=== PATIENT | male | born 2000 | race Caucasian/White ===

== ENCOUNTER 2023-09-04 22:14 | Emergency (ER) | payer OTHER, SELFPAY ==
--- NOTE | ~2023-09-04 | XR_ITS ---
EXAMINATION: XR HAND, RIGHT CLINICAL INFORMATION: First finger dislocation. Post reduction. COMPARISON: None available. TECHNIQUE: PA, lateral, and oblique views of the right hand. FINDINGS: Small cortical irregularity is noted at the posterior/dorsal base of the middle phalanx at the interphalangeal joint of the right second digit, may represent subtle fracture. Otherwise, the bony alignments are intact. The soft tissues are unremarkable.. XR/XR hand RT min 3V IMPRESSION: Small cortical irregularity at the posterior/dorsal base of the middle phalanx at the interphalangeal joint of the right second digit, may represent subtle fracture, otherwise unremarkable.
[2023-09-04 22:16] VITALS: BP 124/79; PULSE 73; RESP 18; TEMP 36.8; O2SAT 98; BMI 25.8
--- NOTE | 2023-09-04 22:53 | PC.NURSE ---
Pt able to move finger but has some mild pain. Unable to fully straighten out finger. Pain upon palpation
[2023-09-05 00:22] VITALS: BP 125/62; PULSE 66; RESP 16; TEMP 37.1; O2SAT 96
--- NOTE | 2023-09-05 00:22 | ED.EXTPRO ---
HPI - Extremity Problem General Chief complaint: Extremity Injury, Upper Stated complaint: dislocated finger? 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 States finger was obviously dislocated and boxing trainer present at game reduced on scene. Patient reporting continued pain and paresthesias. Denies injury to other area, head trauma, numbness/weakness MD Complaint: extremity pain and extremity swelling Related Data Allergies Allergy/AdvReac Type Severity Reaction Status Date / Time Seasonal Allergies Allergy Itchy Eyes Verified 09/04/23 22:21 Review of Systems Review of Systems: Constitutional: No Fever, No Chills ENT/Mouth: No Ear Pain, No Nasal Congestion, No sore throat, No Rhinorrhea, No Swallowing Difficulty Cardiovascular: No Chest Pain, No SOB Respiratory: No Cough Gastrointestinal: No Nausea, No Vomiting, No Abdominal pain Musculoskeletal: + joint pain, No Myalgias, + Joint Swelling Skin: No Skin Lesions, No rash Neuro: No Weakness, No Numbness, No Paresthesias Yes all other systems are reviewed and are negative Constitutional: Constitutional: Reports as per HPI [facility] Past Medical History Attestation statement: The following information was validated with the patient. Source: old records reviewed Social History Social History Smoked in Last 30 Days: No Use of substances other than those prescribed or required for medical reasons: No Advance Directives: No Advance Directives Information Provided: No Physical Exam Vital Signs: Vital Signs: Last Vital Signs Temp 98.7 F 09/05/23 00:22 Pulse 66 09/05/23 00:22 Resp 16 09/05/23 00:22 BP 125/62 09/05/23 00:22 Pulse Ox 96 09/05/23 00:22 O2 Del Method Room Air 09/05/23 00:22 BMI result Body Mass Index 25.8 Const: General: cooperative, healthy appearing and no acute distress Orientation/consciousness: patient oriented x3 Limitations: no limitations HEENT: Head: Yes normal to inspection and Yes atraumatic Ears: hearing grossly normal bilaterally General nose exam: Normal external nose present Face and sinus: Yes normal facial exam Eyes: General: appearance normal, both eyes and all related structures EOM: EOMs intact bilaterally Neck: Neck: Yes normal visual inspection and Yes no meningeal signs Resp: Effort & Inspection: normal respiratory effort and no respiratory distress Cardio: Rate: regular rate Skin: Rashes: no rashes Wounds: no wounds Neuro: General: patient oriented x3, tone normal and no meningeal signs Cranial nerves: Yes CN's II-XII intact bilaterally Gait exam (Neuro): Normal gait present Extrem: Other: Right 2nd digit with noted swelling diffusely tender palpation > PIP. Limited ROM secondary to pain and swelling. Sensation intact to light touch. Finger thumb opposition intact. No snuffbox tenderness. No erythema/warmth or ecchymosis Course Course Course Narrative: XR hand RT min 3V IMPRESSION: Small cortical irregularity at the posterior/dorsal base of the middle phalanx at the interphalangeal joint of the right second digit, may represent subtle fracture, otherwise unremarkable. > finger splint applied Results discussed with patient including worrisome signs and symptoms and strict return precautions, and when to return to the emergency department. Recommended close [facility] follow-up. Patient referred to both Rogelio and Dr. Vigil Patient and mother verbalized understanding and feel safe for discharge at this time. 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 On exam vital signs stable, NAD, nontoxic appearing, physical exam as noted above. Concern for fracture versus dislocation versus sprain Plan: X-rays Please refer to course for remaining clinical decision making, interpretation of labs/imaging results, and discussions with consultants and/or family members. Differential Diagnosis Differential Diagnoses: The differential diagnosis associated with the presentation includes As above Independent Interpretation I performed an independent interpretation of an: Plain X-Ray Radiology Impression Discussion of test interpretation with radiology: I have reviewed the radiologist's reading. External Record Review External record reviewed: Inpatient record, Office record, Outpatient record, Prior outpatient labs, Prior outpatient radiology, Primary care record and Outside ED record Tests considered The following testing was considered but not selected: As above Prescription Management I considered prescription management with: Pain Medication Discharge Plan Discharge Clinical Impression: Fracture of middle phalanx of finger Patient Disposition: Home, Self-Care Instructions: Finger Fracture (ED) Additional Instructions: You have a subtle fracture of her middle phalanx of your right index finger Ice and elevate. Take Tylenol and Motrin Keep finger splint on, dry and clean You need to follow-up with orthopedic hand specialist. Call Wednesday to make an appointment If symptoms persist or worsen, pain is unbearable, you develop fever, discoloration return to the ED Referrals: [facility] [Outside] Geovanna Betancourt MD [Physician] - 3 days Stand Alone Forms: Work/School Release
[2023-09-05] MEDS: Ketorolac Tromethamine 30 MG/ML VIAL IM (00:53)
== END 2023-09-05 01:00 | disposition home or self-care (01) ==
PROVIDERS: Emergency Provider Emergency Medicine Emergency Medical Services
DX: S62.620A Displaced fracture of middle phalanx of right index finger, initial encounter for closed fracture (principal); W21.05XA Struck by basketball, initial encounter; Y93.67 Activity, basketball; Y92.310 Basketball court as the place of occurrence of the external cause; Y99.9 Unspecified external cause status
CPT/HCPCS: 29130; 73130; 96372; 99284; J1885

== ENCOUNTER 2025-02-08 13:18 | Outpatient (AMB) | payer OTHER, SELFPAY ==
--- NOTE | 2025-02-08 13:22 | A.OFFVIS_ITS ---
Vital Signs 02/08/25 13:27 Height 5 ft 11 in Weight 195 lb BMI 27.2 Intake Visit Reasons: ED Alecia CAMPBELL ankle sprain DOI 08/13/24 Intake Note: Ver[place] is a 24 year old male who presents today for an ER follow up of LT ankle sprain, DOI 08/13/24. Patient was seen at [facility] in [place] on 08/21/24 where he reported twisting his ankle while exiting his work van. His pain was manageable therefore he did not seek immediate care. Today patient reports discomfort at the lateral aspect of ankle with any prolong walking and running. States he does a lot of cardio. He has ongoing mild swelling. No numbness or tingling. No other treatment. Patient reports he takes allergy medication, however he does not recall what the name of the medication is. Allergies Seasonal Allergies Allergy (Verified 02/08/25 13:32) Itchy Eyes Medication List - Last Reconciled 02/08/25 by Anish Orona PA-C No Known Home Meds HPI HPI ED Alecia CAMPBELL ankle sprain DOI 08/13/24: Details: 24-year-old gentleman presents to the office today for an injury he sustained to his left ankle on 08/13/2024. He states he was exiting his work van when he twisted the ankle. He was seen at urgent care on 08/21/2024 he states x-rays were taken and were negative for fracture or dislocation. He does not have these x-rays for my review today. He states he is doing significantly better however he does have some moments where there is discomfort with activity such as prolonged standing or impact activities. He denies numbness or tingling, denies instability. 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 No swelling. No significant tenderness to palpation over the medial or lateral malleolus. Slight discomfort over the peroneal tendon. Mild discomfort with eversion against resistance. No ligamentous laxity. Neurovascularly intact Assessment & Plan Assessment & Plan (1) Left ankle sprain: Code(s): S93.402A - Sprain of unspecified ligament of left ankle, initial encounter Category: Medical Plan: The patient was fit for a lace-up ankle brace to be used with activities. He was also given an order for physical therapy to work on range of motion gait training gentle strengthening and proprioceptive training. He can increase activities as tolerated and if symptoms arise or there was concerns he can contact our office otherwise follow up as needed. Coding Level of Care Code New Pt Level 3 (46543) Complex EM visit Add On G2211 Diagnoses Left ankle sprain S93.402A
--- OUTSIDE RECORDS SUMMARY | 2025-02-08 13:23 | XMS_ITS | Encounter Summary ---
Author Organization [facility] Address [address] [place] [phone] Phone Care Team Providers Care Pear Picker Name Role Phone Valeriy Tran MD Primary Care Provider Clark costello Encounter Details Date Type Department Care Team (Late st Contact Info) Description 04/25/2012 Documentation [facility] [address] [place] [address] Family Medicine, Physician [address] [place] [address] Social History Tobacco Use Types Packs/Day Years Used Date Smoking Tobacco: Never Assessed Sex and Gender Information Value Date Recorded Sex Assigned at Male 02/12/2020 8:37 PM EDT Legal Sex Male 4:52 PM EDT Gender Identity Male 02/12/2020 8:37 PM EDT Sexual Orientation Straight 02/12/2020 8: 37 PM EDT documented as of this encounter Plan of Treatment Not on file documented as of this encounter Visit Diagnoses Not on filedocumented in this encounter Care Teams Pear Picker Relationship Specialty Start Date End Date Valeriy Tran MD PCP - General Pediatrics 10/17/19 11/03/23 documented as of this encounter
[2025-02-08 13:27] VITALS: BMI 27.2
== END 2025-02-08 14:00 | disposition home or self-care (01) ==
LOC: HO.HOS 13:19
PROVIDERS: Visit Provider Physician Assistant
DX: S93.402A Sprain of unspecified ligament of left ankle, initial encounter (principal)
CPT/HCPCS: 99203; G2211

== ENCOUNTER → 2025-02-08 13:18 | Outpatient (BNVA) | payer OTHER, SELFPAY | PROVIDERS: Visit Provider Physician Assistant | DX: S93.402A Sprain of unspecified ligament of left ankle, initial encounter (principal) | CPT/HCPCS: 99202 ==

== ENCOUNTER 2025-05-01 11:04 | Outpatient (RCR) | payer OTHER, SELFPAY ==
--- NOTE | 2025-02-27 12:22 | MHC.PT.EP ---
[facility] [place] Office [place] Office [place] Office [address] Mar Priest [address] [phone] F: [phone] F: [phone] F: [phone] F: [phone] Physical Therapy Plan of Care Date of Evaluation: 02/27/25 Date of Surgery: Diagnosis: LEFT ANKLE SPRAIN Assessment: 24 YO MALE REF TO PT W H/O Lt LATERAL ANKLE SPRAIN SUSTAINED 08/13/24. HE WAS SEEN IN ORTHO 02/09/25 D/T PERSISTENT SXS , WAS ISSUED A LACE-UP SUPPORT, AND REF TO PT TO ADDRESS ROM, GAIT, PROPRIOCEPTION, AND STRENGTHENING. 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 HE CAN PERFORM REG ADLs, BUT IS MOST SYMPTOMATIC W PROLONGED WALKING/ STAIRS/ RUNNING. THE Pt IS ACTIVE AND ULTIMATE GOAL IS TO RESUME REGULAR LEVEL OF PHYS ACTIVITY. Frequency and Duration: The patient will be seen 2 x WK x 4 WKS Short Term Goals: *DECR Lt LAT ANKLE SXS *INITIATE HEP-> Lt ANKLE ROM, PROPRIOCEP, BALANCE *IMPROVE AROM Lt ANKLE, NHAN HIP FLEXIB *Pt DEMON WFL FUNCTIONAL SQUAT Retirement Goals: *Pt INDEP HEP AND SELF SX MGMT *IMPROVED LEFI, AT EVAL *Pt DEMO APPROP BODY MECH / FUNCT SQUAT W SIM ADLs *WFL STRENGTH Lt DISTAL LE-> RETURN TO RUNNING PGM Treatment Plan: Modalities to reduce pain, spasms and effusion. Manual therapy to restore motion and function. Therapeutic exercise to improve strength and flexibility. Neuromuscular re-education for posture and balance. Therapeutic activities to return to functional activities of daily living. Electronically signed by: CHOLO FLORENTINO, PT Please sign and return to therapist. Thank you for your referral.
--- NOTE | 2025-05-01 12:06 | MHC.PT.DC ---
[facility] [place] Office [place] Office [place] Office [address] Mar Priest [address] [phone] F: [phone] F: [phone] F: [phone] F: [phone] Physical Therapy Discharge Report Diagnosis: LEFT ANKLE SPRAIN Date of Surgery: Date of Evaluation: 02/27/25 Date of Discharge: 05/01/25 Treatments to Date: 9 Cancellations to Date: 7 No Shows to Date: Discharge Status: Achieved Goals Improved Function Independent with HEP Discharge Summary: THE Pt HAS MET HIS PT GOALS AT THIS TIME AND IS READY FOR D/C FROM PT - HE HAS BEEN ABLE TO RESUME REG ADLs/ FITNESS. HIS LEFI SCORE AT D/C IS 75/80 AND AT EVAL, 11/80. Electronically signed by: CHOLO FLORENTINO,PT Please sign and return to therapist. Thank you for your referral.
== END 2025-05-01 12:07 | disposition home or self-care (01) ==
LOC: HO.PT 11:04
PROVIDERS: Visit Provider Physician Assistant
DX: S93.402D Sprain of unspecified ligament of left ankle, subsequent encounter (principal)
CPT/HCPCS: 97110; 97112; 97161; 97530

== ENCOUNTER 2025-07-20 11:54 | Outpatient (REF) | payer OTHER, SELFPAY ==
--- OUTSIDE RECORDS SUMMARY | 2025-07-20 10:45 | XMS_ITS | Encounter Summary ---
Author Organization [employer] Address [address] [facility] [address] [place] [address] Care Team Providers Care Supervisor Television Chassis Repair Name Role Phone Yulia Anaya CNP Primary Care Provider [phone] Reason for Referral * Imaging (Routine) - Pending Review Specialty Diagnoses / Procedures Referred By Gera bernal Referred To Contact Radiology Diagnoses Chronic pain of left ankle Procedures MRI ANKLE LEFT WO CONTRAST Yulia Anaya CNP [address] [place] [address] Phone: tel: fax: Referral ID Status Reason Start Date Expiration Date V isits Requested Visits Authorized [id number] Pending Review 07/20/2025 07/20/2026 1 1 Encounter Details Date Type Department Care Team (Late st Contact Info) Description 07/20/2025 10:45 AM EDT Office Visit [facility] [address] [place] [address] Yulia Anaya CNP [address], [place] [id number] Encounter for physical examination (Primary Dx); Encounter for immunization; Chronic pain of left ankle; Chronic midline low back pain with left-sided sciatica Social History Tobacco Use Types Packs/Day Years Used Date Smoking Tobacco: Never Smokeless Tobacco: Never Tobacco Cessation:Counseling Given: No Alcohol Use Standard Drinks/Week Comments Yes 0 (1 standard drink = 0.6 oz pur e alcohol) ocasional Depression Answer Date Recorded Patient Health Questionnaire-9 Score 2 07/20/2025 Patient Health Questionnaire-9 Score 2 07/20/2025 Last PHQ-9: Questionnaire Data Not on file 1 Housing Stability Answer Date Recorded What is your housing situation today? I have alicia dumont 07/13/[address] you li ve. Do you have problems with any of the following? None of the above 07/13/2025 Food Insecurity Answer Date Recorded Within the past 12 months, y ou worried that your food would run out before you got money to buy more: Never True 07/13/2025 Within the past 12 months,th e food you bought just didn't last and you didn't have enough money to get more: Never True Transportation Answer Date Recorded In the past 12 months, has l ack of transportation kept you from medical appts, meetings, work or from getting things needed for daily living? No 07/13/2025 Utilities Answer Date Recorded In the past 12 months, has t he electric, gas, oil or water company threatened to shut off services in your home? No 07/13/2025 Depression Answer Date Recorded Patient Health Questionnaire-2 Score 0 07/20/2025 Internet Access Answer Date Recorded Internet Access Q1 Yes 07/13/2025 Internet Access Q2 Not on file 07/13/2025 Sex and Gender Information Value Date Recorded Sex Assigned at Male 03/24/2024 2:18 PM EDT Legal Sex Male 2:18 PM EDT Gender Identity Male 03/24/2024 2:18 PM EDT Sexual Orientation Don't know 07/19/2025 12 :19 PM EDT documented as of this encounter Last Filed Vital Signs Vital Sign Reading Time Taken Comments Blood Pressure 138/86 07/20/2025 10:58 AM EDT Pulse 76 07/20/2025 10:58 AM EDT Temperature 37.1 C (98.8 F) 07/20/2025 10:58 AM EDT Respiratory Rate 20 07/20/2025 10:58 AM EDT Oxygen Saturation - - Inhaled Oxygen Concentration - - Weight 99.8 kg (220 lb) 07/20/2025 10:58 AM EDT Height 177.8 cm (5' 10 ) 07/20/2025 10:58 AM EDT Body Mass Index 31.57 07/20/2025 10:58 AM EDT documented in this encounter Functional Status * Over the past 2 weeks, how often have you been bothered by any of the following problems? Question Answer Date of Assessment Author Patient Health Questionnaire-2 Score 0 06/22 12:01 PM Rocio Sanchez MA * Little interest or pleasure in doing things Answer Date of Assessment Author Not at all 07/20/2025 12:01 PM Jannie Sanchez MA * Feeling down, depressed, or hopeless Answer Date of Assessment Author Not at all 07/20/2025 12:01 PM Jannie Sacnhez MA * Trouble falling or staying asleep, or sleeping too much Answer Date of Assessment Author Not at all 07/20/2025 12:01 PM Jannie Sanchez MA * Feeling tired or having little energy Answer Date of Assessment Author Not at all 07/20/2025 12:01 PM Jannie Sanchez MA * Poor appetite or overeating Answer Date of Assessment Author Not at all 07/20/2025 12:01 PM Jannie Sanchez MA * Feeling bad about yourself - or that you are a failure or have let yourself or your family down Answer Date of Assessment Author Not at all 07/20/2025 12:01 PM Jannie Sanchez MA * Trouble concentrating on things, such as reading the newspaper or watching television Answer Date of Assessment Author Several days 07/20/2025 12:01 PM Jannie Sanchez MA * Moving or speaking so slowly that other people could have noticed? Or the opposite - being so fidgety or restless that you have been moving around a lot more than usual. Answer Date of Assessment Author Several days 07/20/2025 12:01 PM Jannie Sanchez MA * Thoughts that you would be better off or hurting yourself in some way Answer Date of Assessment Author Not at all 07/20/2025 12:01 PM Jannie Sanchez MA * Patient Health Questionnaire-9 Score Answer Date of Assessment Author 2 07/20/2025 12:01 PM Jannie Sanchez MA * How difficult have these problems made it for you to do your work, take care of things at home, or get along with other people? Answer Date of Assessment Author Not difficult at all 07/20/2025 12:01 PM Rocio Paul MA * Over the last 2 weeks, how often have you been bothered by any of the following problems? Question Answer Date of Assessment Author Feeling nervous, anxious, or on edge 0 06/22 12:02 PM Rocio Sanchez MA Not being able to stop or co ntrol worrying 0 07/20/2025 12:02 PM Rocio Sanchez MA Worrying too much about diff erent things 1 07/20/2025 12:02 PM Rocio Sanchez MA Trouble relaxing 1 07/20/2025 12:02 PM Rocio Sanchez MA Being so restless that it is hard to sit still 0 07/20/2025 12:02 PM Rocio Sanchez MA Becoming easily annoyed or irritable 2 06/22 12:02 PM Rocio Sanchez MA Feeling afraid as if somethi ng awful might happen 1 07/20/2025 12:02 PM Rocio Sanchez MA VINICIUS-7 Total Score 5 07/20/2025 12:02 PM Rocio Sanchez MA documented as of this encounter Progress Notes * Yulia Anaya CNP - 07/20/2025 10:45 AM EDT Subjective: Verona Palomares is a 24 y.o. male with PMH of seasonal allergic rhinitis, Chronic bilateral LBP without sciatica who presents to the office for a new patient visit. Previous PCP unknown. Current concerns: Reports Left ankle sprain last July. Reports he completed PT. Reports that he still has some intermittent pain when he plays basketball and chronic swelling. Denies instability or weakness. Chronic back pain: reports ongoing chronic lower back pain, reports it is mild, denies LE weakness,numbness or tingling. Reports history of physical therapy in the past. Also reporting chronic bloating/indigestion, notices it more with oily/greasy foods. Reports sometimes he has diarrhea. Denies constipation, nausea, or vomiting. Reports he has daily BM. Reports recently overseas in April and a couple times prior to that earlier this year. 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 -tobacco: denies -opioids : denies Sexual activity: sexually active with AFAB partners, declines STI screening. Mental health: Patient Health Questionnaire-9 Score: 2 (07/20/2025 12:01 PM) Patient Health Questionnaire-2 Score: 0 (07/20/2025 12:01 PM) Thoughts that you would be better off or hurting yourself in some way: Not at all (07/20/2025 12:01 PM) Allergies[4] Review of Systems Vitals: 07/20/25 1058 BP: 138/86 BP Location: Left arm Patient Position: Sitting BP Cuff Size: Adult Pulse: 76 Resp: 20 Temp: 98.8 ??F (37.1 ??C) TempSrc: Oral Weight: 220 lb (99.8 kg) Height: 5' 10 (1.778 m) Physical Exam Vitals reviewed. Constitutional: General: He is not in acute distress. Appearance: Normal appearance. He is not ill-appearing, toxic-appearing or diaphoretic. HENT: Head: Normocephalic and atraumatic. Cardiovascular: Rate and Rhythm: Normal rate and regular rhythm. Pulses: Normal pulses. Dorsalis pedis pulses are 2+ on the right side and 2+ on the left side. Posterior tibial pulses are 2+ on the right side and 2+ on the left side. Heart sounds: Normal heart sounds. No murmur heard. No friction rub. No gallop. Pulmonary: Effort: Pulmonary effort is normal. No respiratory distress. Breath sounds: Normal breath sounds. No stridor. No wheezing, rhonchi or rales. Chest: Chest wall: No tenderness. Abdominal: General: There is no distension. Palpations: There is no mass. Tenderness: There is no abdominal tenderness. There is no guarding or rebound. Hernia: No hernia is present. Musculoskeletal: Lumbar back: No swelling, deformity, lacerations, spasms or tenderness. Normal range of motion. Right lower leg: No edema. Left lower leg: No edema. Left ankle: Swelling present. No ecchymosis or lacerations. No tenderness. Normal range of motion. Anterior drawer test negative. Normal pulse. Neurological: General: No focal deficit present. Mental Status: He is alert and oriented to person, place, and time. Mental status is at baseline. Psychiatric: Mood and Affect: Mood normal. Behavior: Behavior normal. Thought Content: Thought content normal. Judgment: Judgment normal. Assessment & Plan Encounter for physical examination 24 y/o m with PE showing no acute abnormalities 1. Anticipatory guidance discussed. Specific topics reviewed: drugs, ETOH, and tobacco, importance of regular dental care, importance of regular exercise, importance of varied diet, minimize junk food, and sex; STD and prevention as appropriate. 2. Age appropriate screenings discussed 3. Pt agrees to due vaccinations Routine Screening and Health Maintenance Optometry: Yes, 1800 contacts Dental: Yes, previously [facility] ASCVD risk: 24 y.o. male obese Lab Review: orders written for new lab studies as appropriate; see orders Orders: Basic Metabolic Panel CBC auto differential Lipid Panel, Standard Hepatitis C Antibody with Reflex to HCV, RNA, Quantitative, Real-Time PCR HIV-1/2 Antigen and Antibodies, Fourth Generation, with Reflexes Celiac Disease Comprehensive Panel; Future Helicobacter pylori Antigen, EIA, Stool; Future Encounter for immunization Orders: FLU VACCINE TRIVALENT [id number] (Fluarix) 19 yrs + TDAP VACCINE 7 yrs + Chronic pain of left ankle Chronic swelling over left malleolus As pt has exhausted conservative treatment and is having recurrent pain will obtain MRI to observe soft tissue. Will consider referral to ortho and/or PT based on results. In meantime advised tylenol, rest, ice, and heat especially after exercise. Orders: MRI ANKLE LEFT WO CONTRAST; Future Chronic midline low back pain with left-sided sciatica No red flag signs on PE or hx Will obtain baseline imaging Considering possible pain mgmt and/or chiropractor referral based on results. Orders: XR Lumbar Spine 2-3 Views; Future Current Medications[5] Immunization History Administered Date(s) Administered DTaP, 5 pertussis antigens 2002, 02/28/2003, 05/04/2003, 05/08/2004, 11/17/2006 HPV 9-Valent 07/31/2015, 01/20/2016 HPV, Quadrivalent 01/17/2015 Hep A, ped/adol, 2 dose 01/17/2014, 01/17/2015 Hep B, Adolescent or Pediatric 2002, 05/04/2003, 07/30/2003 Hib (PRP-T) 2002, 02/28/2003, 05/04/2003, 01/15/2004 IPV 2002, 02/28/2003, 07/30/2003, 11/17/2006 Influenza injectable quadrivalent IIV4 with preservative 06/24/2015 Influenza injectable quadrivalent preservative free 06/30/2014, 06/02/2016, 06/25/2017, 07/01/2018,07/01/2019, 07/19/2020, 09/08/2022 Influenza, IIV3, injectable 08/24/2006, 06/27/2009 Influenza, Split (incl. purified surface antigen) 07/04/2010, 07/03/2011, 06/09/2012, 06/28/2013 Influenza, seasonal, injectable, preservative free 07/20/2025 MMR 11/01/2003 MMRV 11/17/2006 Meningococcal B, Recombinant 01/23/2021, 03/03/2022 Meningococcal MCV4P ACYW-135 01/17/2015, 02/10/2019 Novel [id number], all formulations 08/29/2009, 10/08/2009 Pfizer Covid-19 Vaccine 12+ 09/18/2021, 10/09/2021 Pneumococcal Conjugate PCV 7 2002, 02/28/2003, 05/04/2003, 10/27/2004 Tdap 01/01/2015, 07/20/2025 Varicella 11/01/2003 Follow up in about 1 year (around 07/20/2026) for annual phys. [1] Patient Active Problem List Diagnosis Chronic bilateral low back pain without sciatica COVID-19 vaccine series not completed History of concussion Learning disability Low vision Seasonal allergic rhinitis [2] Past Surgical History: Procedure Laterality Date HERNIA REPAIR [3] Family History Problem Relation Name Age of Onset Thyroid disease Mother [4] Allergies Allergen Reactions Pollen Extract Seasonal [5] Current Outpatient Medications Medication Sig Dispense Refill fluticasone (Flonase) 50 MCG/ACT nasal spray Administer 2 sprays into affected nostril(s) Once per day. loratadine (Claritin) 10 MG tablet Take 10 mg by mouth Once per day. No current facility-administered medications for this visit. documented in this encounter Plan of Treatment Scheduled Orders Name Type Priority Associated Diagnoses Orde r Schedule Basic Metabolic Panel Lab Routine Encounter for physical examination Ordered: 07/20/2025 CBC auto differential Lab Routine Encounter for physical examination Ordered: 07/20/2025 Lipid Panel, Standard Lab Routine Encounter for physical examination Ordered: 07/20/2025 Hepatitis C Antibody with Reflex to HCV, RNA, Quantitative, Real-Time PCR Lab Routine Encounter for physical examination Ordered: 07/20/2025 HIV-1/2 Antigen and Antibodies, Fourth Generation, with Reflexes Lab Routine Encounter for physical examination Ordered: 07/20/2025 MRI ANKLE LEFT WO CONTRAST Imaging Routine Chronic pain of left ankle Expected: 07/20/2025, Expires: 07/20/2026 XR Lumbar Spine 2-3 Views Imaging Routine Chronic midline low back pain with left-sided sciatica Expected: 07/20/2025, Expires: 07/20/2026 Celiac Disease Comprehensive Panel Lab Routine Encounter for physical examination Expected: 07/20/2025, Expires: 07/20/2026 Helicobacter pylori Antigen, EIA, Stool Lab Routine Encounter for physical examination Expected: 07/20/2025, Expires: 07/20/2026 documented as of this encounter Visit Diagnoses Diagnosis Encounter for physical examination- Primary Encounter for immunization Chronic pain of left ankle Chronic midline low back pain with left-sided sciatica documented in this encounter Additional Health Concerns Assessment Noted Time PHQ-9 Depression Total Score: 2 07/20/20 25 12:01 PM EDT documented as of this encounter Care Teams Supervisor Television Chassis Repair Relationship Specialty Start Date End Date Yulia Anaya CNP [address] [place] [id number] PCP - General Family Medicine 07/20/25 documented as of this encounter
--- OUTSIDE RECORDS SUMMARY | 2025-07-20 13:30 | XMS_ITS | Encounter Summary ---
Author Organization [employer] Address [address] [place] [address] Care Team Providers Care Detonator Maker Name Role Phone Yulia Anaya RICCI Primary Care Provider [phone] Encounter Details Date Type Department Care Team (Latest Contact Info) Description 07/20/2025 Travel Social History Tobacco Use Types Packs/Day Years Used Date Smoking Tobacco: Never Smokeless Tobacco: Never Alcohol Use Standard Drinks/Week Comments Yes 0 [...] PM EDT documented as of this encounter Functional Status * Over the past 2 weeks, how often have you been bothered by any of the following problems? Question Answer Date of Assessment Author Patient Health Questionnaire-2 Score 0 06/22 12:01 PM EDRocio Powell MA * Little interest or pleasure in doing things Answer Date of Assessment Author Not at all 07/20/2025 12:01 PM EDJannie Powell MA * Feeling down, depressed, or hopeless Answer Date of Assessment Author Not at all 07/20/2025 12:01 PM Jannie Sanchez MA * Trouble falling or staying asleep, [...] Not difficult at all 07/20/2025 12:01 PM EDT Rocio Altman MA * Over the last 2 weeks, how often have you been bothered by any of the following problems? Question Answer Date of Assessment Author Feeling nervous, anxious, or on edge 0 06/22 12:02 PM EDT Rocio Ramey MA Not being able to stop or co ntrol worrying 0 07/20/2025 12:02 PM EDT Rocio Ramey MA Worrying too much about diff erent things 1 07/20/2025 12:02 PM EDT Rocio Ramey MA Trouble relaxing 1 07/20/2025 12:02 PM EDT Rocio Ramey MA Being so restless that it is hard to sit still 0 07/20/2025 12:02 PM Rocio Sanchez MA Becoming easily annoyed or irritable 2 06/22 12:02 PM BLANCAT Rocio Ramey MA Feeling afraid as if somethi ng awful might happen 1 07/20/2025 12:02 PM EDT Rocio Ramey MA VINICIUS-7 Total Score 5 07/20/2025 12:02 PM BLANCAT Rocio Ramey MA documented as of this encounter Plan of Treatment Not on file documented as of this encounter Visit Diagnoses Not on filedocumented in this encounter Additional Health Concerns Assessment Noted Time PHQ-9 Depression Total Score: 2 07/20/20 12:01 PM EDT documented as of this encounter Care Teams Detonator Maker Relationship Specialty Start Date End Date Yulia Anaya CNP [address] [place] [address] [place] [id number] PCP - General Family Medicine 07/20/25 documented as of this encounter
--- OUTSIDE RECORDS SUMMARY | 2025-07-20 13:30 | XMS_ITS | Encounter Summary ---
Author Organization [facility] Address [address] [place] [id number] Phone Care Team Providers Care Exec. Creative Director Name Role Phone Valeriy Tran MD Primary Care Provider Clark costello Encounter Details Date Type Department Care Team (Late st Contact Info) Description 04/25/2012 [place]ation [facility] [place] [address] [place] [address] Family Medicine, Physician [address] [place] [address] Social History Tobacco Use Types Packs/Day Years [...] on filedocumented in this encounter Care Teams Exec. Creative Director Relationship Specialty Start Date End Date Valeriy Tran MD PCP - General Pediatrics 10/17/19 11/03/23 documented as of this encounter
--- OUTSIDE RECORDS SUMMARY | 2025-07-20 13:30 | XMS_ITS | Encounter Summary ---
Author Organization [facility] Address [address] [place], [place] [id number] Phone Care Team Providers Care Straddle Bug Driver Name Role Phone Valeriy Tran MD Primary Care Provider Clark costello Encounter Details Date Type Department Care Team (Late st Contact Info) Description 05/06/2017 Conversion Encounter [facility] - [address] [address] Social History Tobacco Use Types Packs/Day Years Used Date Smoking Tobacco: Never Comments:Never smoker Sex and Gender Information Value Date Recorded Sex Assigned at Male 02/12/2020 8:37 PM EDT Legal Sex Male 4:52 PM EDT Gender Identity Male 02/12/2020 8:37 PM EDT Sexual Orientation Straight 02/12/2020 8: 37 PM EDT documented as of this encounter Plan of Treatment Not on file documented as of this encounter Visit Diagnoses Not on filedocumented in this encounter Care Teams Straddle Bug Driver Relationship Specialty Start Date End Date Valeriy Tran MD PCP - General Pediatrics 10/17/19 11/03/23 documented as of this encounter
--- OUTSIDE RECORDS SUMMARY | 2025-07-20 13:30 | XMS_ITS | Clinical Summary ---
Author Organization [facility] Address [address] [place] [phone] Phone Care Team Providers Care Insulation Board Coater Operator Name Role Phone Unavailable Primary Care Provider Unavailabl e Allergies Active Allergy Reactions Criticality Noted Date Comments Environmental 03/18/2022 Seasonal Medications fluticasone (FLONASE) 50 MCG/ACT nasal sprayIndication s:Seasonal allergic rhinitis due to pollen Administer 2 sprays into each nostril daily. 1 Units 6 9 Active loratadine (Claritin) 10 MG tabletIndicatio ns:Seasonal allergic rhinitis due to pollen Take 1 tablet (10 mg total) by mouth daily. 30 tablet 5 0 Active Active Problems Problem Noted Date Diagnosed Date Chronic bilateral low back pain without sciatica 09/08/2022 Assessment & Plan (09/08/2022 2:54 PM EST): Will refer to PT, use natural anti inflammatories like green tea, fish oil and tumeric. Use good posture. COVID-19 vaccine series not completed 03/03/2022 Overview (03/03/2022): Did not get booster, does not think he needs it Assessment & Plan (03/03/2022 9:29 PM EDT): Encouraged to get booster History of concussion 02/09/2020 Overview (02/09/2020): Momentary of LOC, cleared by ED Assessment & Plan (03/03/2022 9:29 PM EDT): No residual problems Assessment & Plan (02/09/2020 4:02 PM EDT): OK for full activities Low vision 02/09/2020 Overview (02/09/2020): Wears glasses Seasonal allergic rhinitis 02/03/2018 Overview (02/03/2018): Responds to [facility] Assessment & Plan (02/18/2023 12:07 PM EDT): Recommend daily use of allergy meds for best effectiveness, no refills needed today. Assessment & Plan (03/03/2022 11:23 AM EDT): Is mild now, takes claritin and flonase prn Assessment & Plan (02/09/2020 4:03 PM EDT): [facility] makes him sleepy, gags with flonase, so use nasal saline with flonase, use claritin instead Learning disability 01/20/2016 Overview (02/09/2020): dyslexia Assessment & Plan (09/08/2022 2:55 PM EST): I would work on completing your degree at [employer]; utilize all the resources there. Assessment & Plan (03/03/2022 11:24 AM EDT): Is doing well Assessment & Plan (01/23/2021 3:53 PM EDT): Did well at [employer] Assessment & Plan (02/09/2020 4:01 PM EDT): Doing well at [employer], though doesn't like it. Resolved Problems Problem Noted Date Diagnosed Date Resolved Date Acute right flank pain 04/04/202209/08 Overview (04/04/2022): unusual pain, still may well be musculo skeletal: reviewed Uptodate, upper and lower back pain no signs of systemic disease, myelitis, bony involvment, pulm disease, r/o UPJ obstruction/stone, especially worsens during day, with fluid intake, though UA normal. . Assessment & Plan (09/08/2022 2:50 PM EST): Better now. Acute bilateral back pain 03/31/2022 Assessment & Plan (09/08/2022 2:50 PM EST): Will check xray, and refer for PT Ingrown toenail of right foot with infection 09/08/2022 Overview (03/18/2022): X 2 in three weeks. Assessment & Plan (09/08/2022 2:51 PM EST): Better now. Assessment & Plan (04/04/2022 5:27 PM EDT): Now healing after excision Assessment & Plan (03/27/2022 3:18 PM EDT): Keep on vaseline guaze for 24 hours, take acetaminophen or ibuprofen for pain. Soak three times a day for one week, then two times a day for one week, then once a day as it grows in. Cut the corners as it grows in. Call me with an update in two weeks. Assessment & Plan (03/18/2022 11:51 AM EDT): Soak it in warm salt water three times a day, take antibiotic and schedule excision. Immunizations Immunization Administration Dates Next Due COVID-19 Pfizer, monovalent, 12+ years 2,09/18/2021 COVID-19 Pfizer, georgiana-sucros e, 12+ years 10/09/2021,09/18/2021 DTaP 5 11/17/2006, 4,05/04/2003,02/28,2002 H1N1 10/08/2009,08/29/2009 HPV Vaccine 9 Valent 01/20/2016,07/31/2015 HPV, Quadrivalent 01/17/2015 Hep A, ped/adol 01/17/2015,01/17/2014 Hep B, ped/adol 07/30/2003,05/04/2003,2002 Hib (PRP-T) 01/15/2004, 3,02/28/2003,12/22 IPV 11/17/2006, 3,02/28/2003,12/22 Influenza Split 06/28/2013, 2,07/03/2011,07/04 Influenza, injectable, quadrivalent 06/24/2015 Influenza, injectable, quadr ivalent, preservative free 09/08/2022,07/19/2020,07/01/2019,07/01,06/25/2017,06/02/2016,06/30/2014 Influenza, injectable, trivalent 06/27/2009,01/2006 MMR 11/01/2003 MMRV 11/17/2006 Meningococcal B Trumenba 03/03/2022,01/23/2021 Meningococcal Conj (Menactra) MCV4P 02/10/2019,0 01/17/2015 Pneumococcal Conjugate 10/27/2004,2002,02/28/2003,12/22 Tdap 01/01/2015 Varicella 11/01/2003 Family History Medical History Relation Name Comments Diabetes Maternal Grandfather Heart disease (Premature) Maternal Grandfather Anxiety disorder Maternal Grandmother Anxiety disorder Mother Wanda Thyroid disease Mother Wanda Anxiety disorder Sister 1 [facility] Relation Name Status Comments Father Eusebio Alive Father: Hyperli pidemia Maternal Grandfather Maternal Grandmother Mother Wanda Alive Mother: graves disease Other Family history of Migraines, Family history of Obesity, No family history of *Sudden /[place] under 55, No family history of *CVA/Stroke, Family history of Asthma, Family history of Hyperlipidemia, Family history of *Heart Disease, Family history of Diabetes mellitus, Family history of *Dental caries Sister 1 [facility] Alive Sister: Alive a nd well, Alive and well Sister 2 [employer] Alive Sister: Alive a nd well, Alive and well Social History Tobacco Use Types Packs/Day Years Used Date Smoking Tobacco: Never Smokeless Tobacco: Never Comments:Never smoker Alcohol Use Standard Drinks/Week Comments Never 0 (1 standard drink = 0.6 oz pur e alcohol) Hunger/Food Answer Date Recorded In the last 12 months, did y ou or your family ever eat less than you felt you should because there wasn't enough money for food? No 03/03/2022 Stable Housing Answer Date Recorded Are you worried that in the next 2 months you may not have stable housing? No 03/03/2022 Transportation Concerns Answer Date Rec orded In the last 12 months, have you or your family ever had to go without healthcare because you didn't have a way to get there? No 03/03/2022 Hazards in Home Answer Date Recorded Think about the place you li ve. Do you have problems with any of the following? Pests (mice or roaches), mold, no/not working smoke detectors, water leaks, no window guards. No 2021 Financing Utilities Answer Date Recorde d In the last 12 months, has t he electric, gas, oil, or water company threatened to shut off your services in your home? No 03/03/2022 Safety at Home Answer Date Recorded Are you or your family worried about feeling saf e in your home? No 03/03/2022 Outside Support Answer Date Recorded Do you feel that you need mo re support from other people or programs to help you care for yourself or your family? No 03/03/2022 Understanding Health Concerns Answer Da te Recorded Do you need help understandi ng your or your child's healthcare needs (diagnosis, medications, plan, etc.)? No 03/03/2022 Financing Health Concerns Answer Date R ecorded In the last 12 months, was t here a time when your child needed to see a doctor or get medications or supplies but could not because of cost? No 03/03/2022 Missing School or Work Answer Date Jayme rded Did you or your child miss s chool or work because of a health problem that could have been avoided? No 03/03/2022 Sex and Gender Information Value Date Recorded Sex Assigned at Male 02/12/2020 8:37 PM EDT Legal Sex Male 4:52 PM EDT Gender Identity Male 02/12/2020 8:37 PM EDT Sexual Orientation Straight 02/12/2020 8: 37 PM EDT Last Filed Vital Signs Vital Sign Reading Time Taken Comments Blood Pressure 114/64 09/08/2022 2:28 PM EST Pulse 78 09/08/2022 2:28 PM EST Temperature 37.3 C (99.2 F) 02/18/2023 11:31 AM EDT Respiratory Rate - - Oxygen Saturation 99% 04/04/2022 12:24 PM EDT Inhaled Oxygen Concentration - - Weight 86.7 kg (191 lb 3.2 oz) 02/18/2023 11:31 AM EDT Height 177.8 cm (5' 10 ) 09/08/2022 2:28 PM EST Body Mass Index 27.43 09/08/2022 2:28 PM EST Plan of Treatment Health Maintenance Due Date Last Done Comments DTaP,Tdap,and Td Vaccines (7 - Td or Tdap) 01/01/2025 01/01/2015, 11/17/2006, 05/08/2004, Additional history exists Influenza Vaccines (#1) 2025 09/08/20, 07/19/2020, 07/01/2019, Additional history exists COVID-19 Vaccine (2024-10 6 season) 2025 10/09/2021, 10/09/2021, 09/18/2021, Additional history exists Hepatitis B Vaccines Completed 07/30/2003, 05/04/2003, 2002 HIB Vaccines Completed 01/15/2004, 04/20, 02/28/2003, Additional history exists Pneumococcal Vaccine Completed 10/27/2004, 05/04/2003, 02/28/2003, Additional history exists IPV Vaccines Completed 11/17/2006, 07/21, 02/28/2003, Additional history exists MMR Vaccines Completed 11/17/2006, 11/01/2003 Varicella Vaccines Completed 11/17/2006, 11/01/2003 Hepatitis A Vaccines Completed 01/17/2015, 01/18/20 14 HPV Vaccines Completed 01/20/2016, 07/21, 01/17/2015 Meningococcal Vaccine Completed 02/10/2019, 015 Men B Vaccine Completed 03/03/2022, 01/23/2021
--- OUTSIDE RECORDS SUMMARY | 2025-07-20 13:30 | XMS_ITS | Encounter Summary ---
Author Organization [facility] Address [address] [place] [phone] Phone Care Team Providers Care Frankfurter Inspector Name Role Phone Valeriy Tran MD Primary Care Provider Clark costello Encounter Details Date Type Department Care Team (Late st Contact Info) Description 03/03/2016 Documentation [facility] [place] [address] [place] [address] Family Medicine, Physician [address] [place] [address] Social History Tobacco Use Types Packs/Day Years [...] on filedocumented in this encounter Care Teams Frankfurter Inspector Relationship Specialty Start Date End Date Valeriy Tran MD PCP - General Pediatrics 10/17/19 11/03/23 documented as of this encounter
--- OUTSIDE RECORDS SUMMARY | 2025-07-20 13:30 | XMS_ITS | Encounter Summary ---
Author Organization [employer] Address [address] [place] [address] Care Team Providers Care Human Factors Specialist Name Role Phone Unavailable Primary Care Provider Unavailabl e Reason for Visit * Reason Onset Date Comments chart prep 07/16/2025 Encounter Details Date Type Department Care Team (Late st Contact Info) Description 07/16/2025 Telephone [facility] [address] [place] [address] Rahel Rima [place] chart prep Social History Tobacco Use Types Packs/Day Years Used Date Smoking Tobacco: Never Assessed Housing Stability Answer Date Recorded What is [...] off services in your home? No 07/13/2025 Internet Access Answer Date Recorded Internet Access Q1 Yes 07/13/2025 Internet Access Q2 Not on file 07/13/2025 Sex and Gender Information Value Date Recorded Sex Assigned at Male 03/24/2024 2:18 PM EDT Legal Sex Male 2:18 PM EDT Gender Identity Male 03/24/2024 2:18 PM EDT Sexual Orientation Don't know 07/19/2025 12 :19 PM EDT documented as of this encounter Miscellaneous Notes * Telephone Encounter - Rima Mcginnis MA - 07/16/2025 2:34 PM EDT Chart Prep Labs: not applicable Images: not applicable Referrals: not applicable Vaccines due: Covid, Flu, Tdap, Td, and DTAP Screenings: STI screening Overdue care gaps: SBIRT, PHQ-9, VINICIUS-7, Oral health screening, Disability screen, and Tobacco documented in this encounter Plan of Treatment Not on file documented as of this encounter Visit Diagnoses Not on filedocumented in this encounter
--- OUTSIDE RECORDS SUMMARY | 2025-07-20 13:30 | XMS_ITS | Encounter Summary ---
Author Organization [facility] Address [address] [place], [place] [id number] Phone Care Team Providers Care Blacksmith Supervisor Name Role Phone Valeriy Tran MD Primary Care Provider Clark costello Reason for Visit * Reason Comments Med Refill Encounter Details Date Type Department Care Team ([facility] Contact Info) Description 02/07/2018 Refill [facility] [place] [address] [place] [address] Ramos Lockwood MD [address] [place] [address] Allergic rhinitis, unspecified chronicity, unspecified seasonality, unspecified trigger (Primary Dx) Social History Tobacco Use Types Packs/Day Years Used Date Smoking Tobacco: Never Smokeless Tobacco: Never Comments:Never smoker Sex and Gender Information Value Date Recorded Sex Assigned at Male 02/12/2020 8:37 PM EDT Legal Sex Male 4:52 PM EDT Gender Identity Male 02/12/2020 8:37 PM EDT Sexual Orientation Straight 02/12/2020 8: 37 PM EDT documented as of this encounter Miscellaneous Notes * Telephone Encounter - Maryse Macias LPN - 02/07/2018 10:30 AM EDT Refill request for Cetirizine. Last PE 02/03/18/ELDER documented in this encounter Plan of Treatment Not on file documented as of this encounter Visit Diagnoses Diagnosis Allergic rhinitis, unspecified chronicity, unspecified seasonality, unspecified trigger- Primary documented in this encounter Care Teams Blacksmith Supervisor Relationship Specialty Start Date End Date Valeriy Tran MD PCP - General Pediatrics 10/17/19 11/03/23 documented as of this encounter
--- OUTSIDE RECORDS SUMMARY | 2025-07-20 13:30 | XMS_ITS | Data Portability ---
Author Organization [facility] [address] Address [address] [place] [address] Assessment No assessment recorded. Plan of Treatment Reminders Order Date Submit Date Provider Last Modified By Organization Details Last Modified Time Details Appointments None recorded. Lab None recorded. Referral None recorded. Procedures None recorded. Surgeries None recorded. Imaging XR, foot, 3 or more view - landed on the foot inverted while playing basketball 1 week ago. tenderness over bone near the 3,4,5 proximal end of metatarsals . tenderness with ROM 2022 023 [facility], [address] [place], [address], 13:00:36 Medication Orders None recorded. Patient TargetsNo targets recorded. Patient InstructionsNo instructions recorded. Reason for Referral None Reported. Results Created Date Observation Date Name Description Value Unit Range Abnormal Flag Note LastModifiedBy Organization Detail LastModifiedTime 07/22/20 23 07/22/2023 XR, foot, 3 or more view No observ ation record ed. [email or web address] [facility] [address] [place], [address], 07/22/2023 18:18:09 Result Notes None recorded. Problems No Known Problems Procedures Surgical History Date Name Laterality Status Provider Name and Address Organization Details Recorded Time hernia repair completed MIGUEL [facility] 07/22/2023 11:24:49 Imaging Results None recorded. Procedure Notes None recorded. Medical Equipment None Reported. Allergies No known drug allergies Medications Name Sig Start Date Stop Date Status Note LastModified by Organization Details LastModified Time polymyxin B sulfate 10,000 unit-trime thoprim 1 mg/mL eye drops ADMINISTER 1 DROP INTO BOTH EYES EVERY 6 HOURS FOR 7 DAYS. 07/22 completed Not Available Not Available Not Available Vitals Date Recorded Body height Body mass index (BMI) Body mass index (BMI) [Percentile] Per age and sex Body weight Oxygen saturation Oxygen saturation in Arterial blood by Pulse oximetry Heart rate Respiratory rate Body temperature Systolic And Diastolic Provider Name and Address Organization Details Last Updated DateTime 3 180.34 cm 25.8 kg/m2 74 % 41515.5 9 g 98 % 98 % 90 /min 18 /min 98 [degF] 122/71 mm[Hg] MIGUEL SCHNEIDER - [facility] 3 11:23:53 Social History None recorded. Functional Status Question Answer Note LastModified by Organizat ion Details LastModified Time Do you use any illicit or recreational drugs? No Information not available 07/22/2023 Do you or have you ever used any other forms of tobacco or nicotine? No Information not available 07/22/2023 What is your level of alcohol consumption? None Information not available 07/22/2023 Mental Status None recorded. Family History Nothing Reported. Medical History No medical history recorded. Past Encounters Encounter ID Performer Location Encounter Start Date Encounter Closed Date Diagnosis/Indication Diagnosis SNOMED-CT Code Diagnosis ICD10 Code Diagnosis IMO Codes Diagnosis [place] [id number] [place] [address] [facility] [address] [place] [address] 07/22/2023 11:09:45 07/22/2023 12:26:11 Injury of left foot [id number] S99.922A x ray negative for acute fracture rest from basketball and running for 2 weeks My suggestion s for this condition include:1. Ice2. Elevate3. Rest4. Take Tylenol if you do not have any allergies to these medication s. If you take a blood thinner you should not take NSAIDS like Ibuprofen. 5. After 3 days of icing - I would switch to heat - this will help reabsorb any bruising or swelling. If you are still having pain after 7-10 days, I would suggest that you follow up with our office again or schedule and appointmen t with an orthopedis t. Advanced Imaging May be necessary I would be seen more urgently if you develop any of the following symptoms.1 . Numbness2. Cold Extremitie s3. Worsening Pain4. Skin Redness Thank you for using [facility] , please contact our office if you have any questions or concerns. Health Concerns Section Related Observation LastModified by Organization Detai ls LastModified Time None Recorded Concern Status LastModified by Organization Details LastModified Time None Recorded Advance Directives Directive None Recorded Payers Insurance Date Sequence Insurance Name Policy Number Policy Couch Covered Member ID Couch Member ID Guarantor Name 08/09/2023 1 [employer] - [facility] (HMO) [place] Jamalgary Tito Jelani [id number] Verona Palomares 07/22/2023 1 [employer] - TOGETHER (MEDICAID HMO) Verona Palomares [id number] Verona Palomares 07/22/2023 1 [place] [facility] Jamalgary Palomares [id number] Verona Palomares Notes Date Note Type Note Provider Name and Address Organization Details Recorded Time 3 text/htm l Foot/Ankle UCReported by PatientHPIFor associated symptoms, patient reportsswellingbut reportsno numbness,no tingling,no redness,no warmth, andno ecchymosis. For source of patient information, patient reportsinformation obtained from patientandpatient arrived at urgent care ambulatory. For location, patient reportsleft. For problem, patient reportsinjuryandswelling. For severity, patient reportsmoderate. For context, patient reportstwistingandsports injury. For aggravating factors, patient reportsstandingandwalking. For alleviating factors, patient reportsice. For previous injury, patient reportsno prior injury to affected body part. Presents with left dorsal foot pain. Rolled foot while playing basketball. Cheryl Roger NP [address] [place], [address], [place] - [facility] 08/09/2023 09:01:41
--- OUTSIDE RECORDS SUMMARY | 2025-07-20 13:30 | XMS_ITS | Clinical Summary ---
Author Organization [employer] Address [address] [facility] 7t [place] [address] Care Team Providers Care Veneer Clipper Helper Name Role Phone Yulia Anaya CNP Primary Care Provider [phone] Allergies Active Allergy Reactions Criticality Noted Date Comments Pollen Extract 03/18/2022 Seasonal Medications fluticasone (Flonase) 50 MCG/ACT nasal spray Administer 2 sprays into affected nostril(s) Once per day. 9 Active loratadine (Claritin) 10 MG tablet Take 10 mg by mouth Once per day. 0 Active Active Problems Problem Noted Date Diagnosed Date Chronic bilateral low back pain without sciatica 09/08/2022 COVID-19 vaccine series not completed 03/03/2022 Overview (07/16/2025): Did not get booster, does not think he needs it History of concussion 02/09/2020 Overview (07/16/2025): Momentary of LOC, cleared by ED Low vision 02/09/2020 Overview (07/16/2025): Wears glasses Seasonal allergic rhinitis 02/03/2018 Overview (07/16/2025): Responds to [facility] Learning disability 01/20/2016 Overview (07/16/2025): dyslexia Encounters Date Type Department Care Team Description 07/20/2025 10:45 AM EDT Office Visit [facility] & [facility]S [address] [place] [address] Yulia Anaya CNP Encounter for physical examination (Primary Dx); Encounter for immunization; Chronic pain of left ankle; Chronic midline low back pain with left-sided sciatica 07/20/2025 Travel 07/16/2025 Telephone [facility] [address] [place] [address] Rima Mcginnis MA chart prep 07/13/2025 Patient Outreach [address] [address] Hal Canela MD Pre-visit Planning (SDOH screening negative and Tobacco screening negative) 06/08/[address] [address] Hal Canela MD CHW - New Patient Assistance 05/29/[address] [address] Hal Canela MD Appointment Request 05/22/2025 Telephone [facility] [address] [place] [address] Rima Mcginnis MA chart prep 05/09/[address] [address] Hal Canela MD from Last 3 Months Immunizations Immunization Administration Dates Next Due DTaP, 5 pertussis antigens 11/17/2006,,05/04/2003,02/28,2002 HPV 9-Valent 01/20/2016,07/31/2015 HPV, Quadrivalent 01/17/2015 Hep A, ped/adol, 2 dose 01/17/2015,01/17/2014 Hep B, Adolescent or Pediatric 07/30/2003,2002,2002 Hib (PRP-T) 01/15/2004, 3,02/28/2003,12/22 IPV 11/17/2006, 3,02/28/2003,12/22 Influenza injectable quadriv alent IIV4 with preservative 06/24/2015 Influenza injectable quadriv alent preservative free 09/08/2022,07/19/2020,07/01/2019,07/01,06/25/2017,06/02/2016,06/30/2014 Influenza, IIV3, injectable 06/27/2009, 6 Influenza, Split (incl. mateusz fied surface antigen) 06/28/2013,06/09/2012,07/03/2011,07/04 Influenza, seasonal, injecta ble, preservative free 07/20/2025 MMR 11/01/2003 MMRV 11/17/2006 Meningococcal B, Recombinant 03/03/2022,01/24/20 21 Meningococcal MCV4P ACYW-135 02/10/2019,01/18/20 15 Novel [id number]-[id number], all formulations 10/08/2009,08/29/2009 Pneumococcal Conjugate PCV 7 10/27/2004, 05/04/2003,02/28/2003,12/22 Tdap 07/20/2025,01/01/2015 Varicella 11/01/2003 Family History Medical History Relation Name Comments Thyroid disease Mother Relation Name Status Comments Mother Social History Tobacco Use Types Packs/Day Years [...] Don't know 07/19/2025 12 :19 PM EDT Last Filed Vital Signs Vital [...] Mass Index 31.57 07/20/2025 10:58 AM EDT Plan of Treatment Health Maintenance Due Date Last Done Comments Chlamydia and Gonorrhea Screening 2002 HIV Screening 2002 Alcohol/Substance Use Screening 2014 Family Planning (PISQ) 2017 Hepatitis C Screening 2020 COVID-19 Vaccine ( season) 2025 10/09/2021, 09/18/2021 Depression Screening 07/20/2026 07/20/2025, 07/20/20 Disability Screening 07/20/2026 07/20/2025 SDOH Screening 07/20/2026 07/20/2025 Tobacco Screening 07/20/2026 07/20/2025 DTaP/Tdap/Td Vaccines (8 - Td or Tdap) 07/20/2035 07/20/2025, 01/01/2015, 11/17/2006, Additional history exists Zoster Vaccines (1 of 2) 2052 RSV Patients and Patients Aged 60 years or older (1 - 1-dose 75+ series) 2077 Hepatitis B Vaccines Completed 07/30/2003, 05/04/2003, 2002 HIB Vaccines Completed 01/15/2004, 04/20, 02/28/2003, Additional history exists Pneumococcal Vaccine: Pediatrics (0 to 5 Years) and At-Risk Patients (6 to 49) Years Aged Out 10/27/2004, 05/04/2003, 02/28/2003, Additional history exists No longer eligible based on patient's age to complete this topic IPV Vaccines Completed 11/17/2006, 07/21, 02/28/2003, Additional history exists Hepatitis A Vaccines Completed 01/17/2015, 01/18/20 14 HPV Vaccines Completed 01/20/2016, 07/21, 01/17/2015 Meningococcal Vaccine Completed 02/10/2019, 015 Meningococcal B Vaccine Completed 03/03/2022, 01/23 Influenza Vaccine Completed 07/20/2025, , 07/19/2020, Additional history exists RSV under 20 months Aged Out No longe r eligible based on patient's age to complete this topic Rotavirus Vaccines Aged Out No longer eligible based on patient's age to complete this topic Insurance [employer] Care Teams Veneer Clipper Helper Relationship Specialty Start Date End Date Yulia Anaya CNP [address] [place] [address] PCP - General Family Medicine 07/20/25
[2025-07-20 14:06] LABS: MANUAL DIFF FLAG NO
[2025-07-20 14:16] LABS: Hematocrit 44.4 % (42.0-52.0); Hemoglobin 14.5 g/dl (14.0-18.0); Imm Gran Abs Auto 0.03 X10*3/uL (0.00-0.03); Imm Gran Pct Auto 0.5 % (0.0-0.4); Lymphocytes Absolute Auto 1.2 X10*3/uL (1.2-4.9); Mean Corpuscular HGB Conc 32.7 g/dl (31.0-36.0); Mean Corpuscular Hemoglobin 30.5 pg (27.0-33.0); Mean Corpuscular Volume 93.5 fL (80.0-98.0); NRBC Abs Auto 0.000 X10*3/uL (0.0-0.012); NRBC Pct Auto 0.0 /100WBC (0.0-0.2); Platelet Count 202 X10*3/uL (160-400); Red Blood Count 4.75 X10*6/uL (4.60-5.80); White Blood Count 5.7 X10*3/uL (4.8-10.8)
[2025-07-20 14:24] LABS: Anion Gap 11 (12-20); Blood Urea Nitrogen 15 mg/dL (9-16); Calcium 9.3 mg/dL (8.4-10.2); Carbon Dioxide 27 mmol/L (22-29); Chloride 105 mmol/L (96-108); Cholesterol 195 mg/dL (<200); Estimated Glomerular Filt Rate > 60; HDL Cholesterol 51 mg/dL (>40); Potassium 4.1 mmol/L (3.3-5.1); Sodium 139 mmol/L (135-145); Triglycerides 106 mg/dL (<150)
[2025-07-21 07:41] LABS: HIV Num 1 0.06 S/CO (0.00-0.99); ~HepC Num1 0.07 S/CO (0.00-0.79); ~Hepatitis C Antibody Nonreactive (Nonreactive)
[2025-07-23 19:04] LABS: Immunoglobulin A 327 mg/dL (47-310)
== END 2025-07-20 11:55 | disposition home or self-care (01) ==
LOC: HO.CHCLDS 11:54
DX: Z00.00 Encounter for general adult medical examination without abnormal findings (principal); Z11.59 Encounter for screening for other viral diseases; Z11.4 Encounter for screening for human immunodeficiency virus [HIV]; Z13.6 Encounter for screening for cardiovascular disorders
CPT/HCPCS: 36415; 80048; 80061; 82784; 85025; 86364; 86803; 87389

== ENCOUNTER 2025-09-03 19:55 | Outpatient (REF) | payer OTHER, SELFPAY ==
--- NOTE | ~2025-09-03 | MR_ITS ---
EXAMINATION: MR ANKLE WITHOUT CONTRAST, LEFT CLINICAL INFORMATION: Chronic ankle pain COMPARISON: None available. TECHNIQUE: MRI of the ankle was performed using routine sequences on a high-field scanner. FINDINGS: BONE/JOINTS: Area of subchondral edema with overlying chondral thinning in the lateral talar dome measuring 6 x 9 mm at the articular surface. This could represent sequela of degeneration, osteochondral lesion/OCD. No loose unstable osteochondral fragments is seen. Mild patchy edema in the medial malleolus, probably degenerative. Focus of mild chondral heterogeneity in the tibial plafond. Small talocrural joint effusion, with mild synovitis/debris. No evidence of acute fracture or dislocation. No suspicious bony lesions. MUSCLES/TENDONS: Medial flexor, peroneal, extensor tendons are intact. LIGAMENTS: Mild sprain ATFL. Posterior talofibular, tibiofibular, calcaneofibular ligaments intact. Intact deltoid ligament. ACHILLES TENDON: Intact. PLANTAR FASCIA: Intact. SINUS TARSI: Normal signal. TARSAL TUNNEL : No mass lesion SUBCUTANEOUS SOFT TISSUES: No fluid collection MR/MR ankle LT wo con IMPRESSION: 1. Lateral talar dome 6 x 9 mm subchondral edema with overlying chondral thinning. This could represent sequela of degeneration, osteochondral lesion/OCD. No loose unstable osteochondral fragments are seen. 2. Mild talocrural joint arthritis. Mild patchy edema in the medial malleolus, probably degenerative. 3. Small talocrural joint effusion with mild synovitis/debris. 4. Mild sprain ATFL. Electronically signed by: Colten Rivera MD 09/05/2025 09:38 AM EST
--- OUTSIDE RECORDS SUMMARY | 2025-09-03 22:50 | XMS_ITS | Data Portability ---
Author Organization [employer] [facility] [id number] Address [address] [place] [address] Assessment No assessment recorded. Plan of Treatment [...] 023 [facility], [address] [place], [address], 13:00:36 Medication Orders None recorded. Patient TargetsNo targets recorded. Patient InstructionsNo instructions recorded. Reason for Referral None Reported. Results Created Date Observation Date Name Description Value Unit Range Abnormal Flag Note LastModifiedBy Organization Detail LastModifiedTime 07/22/20 23 07/22/2023 XR, foot, 3 or more view No observ ation record ed. [email or web address] [facility] [address] [place], [address], 07/22/2023 18:18:09 Result Notes None recorded. Problems [...] age and sex Body weight Oxygen saturation Heart rate Respiratory rate Body temperature Systolic And Diastolic Provider Name and Address Organization Details Last Updated DateTime 3 180.34 cm 25.8 kg/m2 74 % 45763.5 9 g 98 % 90 /min 18 /min 98 [degF] 122/71 mm[Hg] MIGUEL MAYER PA - [facility] 3 11:23:53 Social History [...] ICD10 Code Diagnosis IMO Codes Diagnosis [place] [id number] [place] [id number] [place] [address] 07/22/2023 11:09:45 07/22/2023 12:26:11 Injury of left foot [id number] S99.922A x ray negative for acute fracture [...] Couch Member ID Guarantor Name 08/09/2023 1 [facility] [employer] PLAN - [facility] CLARITY (HMO) CHILDACO Verona Francis Jelani [id number] Verona Palomares 07/22/2023 1 [facility] [employer] - TOGETHER (MEDICAID HMO) Jamalgary Williamus Palomares [id number] Verona Palomares 07/22/2023 1 [place] [facility] Jamalgary Palomares [id number] Verona Palomares Notes Date Note Type Note [...] Cheryl Roger NP [address] [place], [address], [place] - [facility] 08/09/2023 09:01:41
--- OUTSIDE RECORDS SUMMARY | 2025-09-03 22:50 | XMS_ITS | Encounter Summary ---
Author Organization [facility] Address [address] [place], [place] [phone] Phone Care Team Providers Care Home Care Giver Name Role Phone Valeriy Tran MD Primary Care Provider Clark costello Encounter Details Date Type Department Care Team (Late st Contact Info) Description 05/06/2017 Conversion Encounter [facility] - [address] [address] Social History Tobacco Use Types Packs/Day Years [...] on filedocumented in this encounter Care Teams Home Care Giver Relationship Specialty Start Date End Date Valeriy Tran MD PCP - General Pediatrics 10/17/19 11/03/23 documented as of this encounter
--- OUTSIDE RECORDS SUMMARY | 2025-09-03 22:50 | XMS_ITS | Encounter Summary ---
Author Organization [facility] Address [address] [place] [phone] Phone Care Team Providers Care Bone Char Operator Name Role Phone Valeriy Tran MD Primary Care Provider Clark costello Encounter Details Date Type Department Care Team (Late st Contact Info) Description 04/25/2012 Documentation [facility] Family Medicine [address] [place] [address] Family Medicine, Physician [address] [place] [address] Social History Tobacco Use Types Packs/Day Years [...] on filedocumented in this encounter Care Teams Bone Char Operator Relationship Specialty Start Date End Date Valeriy Tran MD PCP - General Pediatrics 10/17/19 11/03/23 documented as of this encounter
--- OUTSIDE RECORDS SUMMARY | 2025-09-03 22:50 | XMS_ITS | Clinical Summary ---
Author Organization [employer] Address [address] [facility] [address] [place] [address] Care Team Providers Care Global Sales Director Name Role Phone Yulia Anaya CNP Primary Care Provider [phone] Allergies Active Allergy Reactions Criticality Noted Date [...] allergic rhinitis 02/03/2018 Overview (07/16/2025): Responds to [facility] Learning disability 01/20/2016 Overview (07/16/2025): dyslexia Encounters Date Type Department Care Team Description 07/24/2025 Results Follow-Up [facility] [address] [place], [place] [phone] Yulia Anaya CNP Basic Metabolic Panel, CBC auto differential, Lipid Panel, Standard, Additional followed-up results: 3 07/20/2025 10:45 AM EDT Office Visit [facility] [address] [place] [address] Yulia Anaya CNP Encounter for physical examination (Primary Dx); Encounter for immunization; Chronic pain of left ankle; Chronic midline low back pain with left-sided sciatica 07/20/2025 Travel 07/16/2025 Telephone [facility] MED & PEDS [address] [place] [address] Rima Mcginnis MA chart prep 07/13/2025 Patient Outreach [facility] [address] [place] [address] Hal Canela MD Pre-visit Planning (SDOH screening negative and Tobacco screening negative) 06/08/2025 Telephone [facility] [address] [place] [address] Hal Canela MD CHW - New Patient Assistance from Last 3 Months Immunizations Immunization Administration [...] 21 Meningococcal MCV4P ACYW-135 02/10/2019,01/18/20 15 Novel [id number]-[id number], all formulations 10/08/2009,08/29/2009 Pneumococcal Conjugate PCV 7 [...] Done Comments Chlamydia and Gonorrhea Screening 2002 Alcohol/Substance Use Screening 2014 Family Planning (PISQ) 2017 COVID-19 Vaccine ( season) 2025 10/09/2021, 09/18/2021 [...] 015 Meningococcal B Vaccine Completed 03/03/2022, 01/23 HIV Screening Completed 07/20/2025 Hepatitis C Screening Completed 07/20/2025 Influenza Vaccine Completed 07/20/2025, , 07/19/2020, Additional history exists RSV under 20 months Aged Out No longe r eligible based on patient's age to complete this topic Rotavirus Vaccines Aged Out No longer eligible based on patient's age to complete this topic Procedures Procedure Name Priority Date/Time Associated Diagnosis Comments CELIAC DISEASE COMPREHENSIVE PANEL Routine 07/20/2025 11:55 AM EDT Encounter for physical examination HIV 1/2 ANTIGEN/ANTIBODY, FOURTH GENERATION W/RFL Routine 07/20/2025 11:55 AM EDT Encounter for physical examination HEPATITIS C AB W/REFL TO HCV RNA, QN, PCR Routine 07/20/2025 11:55 AM EDT Encounter for physical examination LIPID PANEL, STANDARD Routine 07/20/2025 11:55 AM EDT Encounter for physical examination CBC WITH AUTO DIFFERENTIAL Routine 07/20/2025 11:55 AM EDT Encounter for physical examination BASIC METABOLIC PANEL Routine 07/20/2025 11:55 AM EDT Encounter for physical examination from Last 3 Months Results * (ABNORMAL) CBC auto differential (07/20/2025 11:55 AM EDT) White Blood Count 5.7 4.8 - 10.8 X10*3/uL [facility] Red Blood Count 4.75 4.60 - 5.80 X10*6/uL [facility] Hemoglobin 14.5 14.0 - 18.0 g/dl [facility] Hematocrit 44.4 42.0 - 52.0 % [facility] Mean Corpuscular Volume 93.5 80.0 - 98.0 fL [facility] Mean Corpuscular Hemoglobin 30.5 27.0 - 33.0 pg [facility] Mean Corpuscular HGB Conc 32.7 31.0 - 36.0 g/dl [facility] Red Cell Distribution Width 12.8 11.0 - 16.0 % [facility] Platelet Count 202 160 - 400 X10*3/uL [facility] Mean Platelet Volume 10.2 9.4 - 12.4 fL [facility] Neutrophils Percent Auto 69.7 45 - 73 % [facility] Imm Gran Pct Auto 0.5(H) 0.0 - 0.4 % [facility] Lymphocytes Percent Auto 20.1 20 - 40 % [facility] Monocytes Percent Auto 7.5 2 - 11 % [facility] Eosinophils Percent Auto 1.7 0 - 4 % [facility] Basophils Percent Auto 0.5 0 - 2 % [facility] NRBC Pct Auto 0.0 0.0 - 0.2 /100WBC [facility] Neutrophils Absolute Auto 4.0 2.0 - 8.3 x10*3/uL [facility] Imm Gran Abs Auto 0.03 0.00 - 0.03 X10*3/uL [facility] Lymphocytes Absolute Auto 1.2 1.2 - 4.9 X10*3/uL [facility] Monocytes Absolute Auto 0.4 0.1 - 1.2 X10*3/uL [facility] Eosinophils Absolute Auto 0.1 0.0 - 0.4 X10*3/uL [facility] Basophils Absolute Auto 0.0 0.0 - 0.2 X10*3/uL [facility] NRBC Abs Auto 0.000 0.0 - 0.012 X10*3/uL [facility] Blood Venous blood specimen / Unknown 07/20/2025 11:55 AM EDT 07/20/2025 2:00 PM EDT [facility] LAB BLOOD ORDERABLES Selina l Result Performing Organization Address [facility] de Phone Number [facility] [address] [place] [address] [phone] * Hepatitis C Antibody with Reflex to HCV, RNA, Quantitative, Real-Time PCR (07/20/2025 11:55 AM EDT) Pathologist [facility] Hepatitis C Antibody Nonreactive Nonreactive [facility] Comment:Antibodies to HCV no t detected; does not exclude early acuteHCV infection. Blood Venous blood specimen / Unknown 07/20/2025 11:55 AM EDT 07/20/2025 2:00 PM EDT [facility] LAB BLOOD ORDERABLES Selina l Result Performing Organization Address [facility] de Phone Number [facility] [address] [place] [phone] * (ABNORMAL) Celiac Disease Comprehensive Panel (07/20/2025 11:55 AM EDT) Immunoglobulin A, Qn, Serum 327(A) 47 - 310 mg/dL [facility] Comment:THIS TEST WAS PERFOR MED AT:[id number] [place] [id number] POTTER MD Transglutaminase IgA <1.0 U/mL [facility] Comment:Value Interpretation ----- <15.0 Antibody not detected> or = 15.0 Antibody detected Interpretation SEE NOTE [facility] Comment:No serological evide nce of celiac disease.Total serum IgA is elevated. Consider mucosalinflammatory conditions or underlying gammopathy. Blood Venous blood specimen / Unknown 07/20/2025 11:55 AM EDT 07/20/2025 2:00 PM EDT [facility] LAB BLOOD ORDERABLES Selina l Result Performing Organization Address City/[facility]/ZIP Co de Phone Number [facility] [address] [place] [address] [phone] * HIV-1/2 Antigen and Antibodies, Fourth Generation, with Reflexes (07/20/2025 11:55 AM EDT) Pathologist [facility] HIV AB/AG Nonreactive Nonreactive [facility] Comment:HIV-1 p24 Ag and/or HIV-1/HIV-2 Ab not detected.A test result that is nonreactive does not exclude thepossibility of exposure to or infection with HIV-1 and/orHIV-2. Nonreactive results in this assay for individualswith prior exposure to HIV-1 and/or HIV-2 may be due toantigen and antibody levels that are below the limit ofdetection of this assay.The [employer] HIV Ag/Ab Combo assay result andsupplemental assay results should be interpreted inconjunction with the patient's clinical presentation,history and other laboratory results. If the results areinconsistent with clinical evidence, additional testing issuggested to confirm the result. Blood Venous blood specimen / Unknown 07/20/2025 11:55 AM EDT 07/20/2025 2:00 PM EDT [facility] LAB BLOOD ORDERABLES Selina l Result Performing Organization Address City/[facility]/ZIP Co de Phone Number [facility] [address] [place] [address] [phone] * (ABNORMAL) Lipid Panel, Standard (07/20/2025 11:55 AM EDT) Triglycerides 106 <150 mg/dL [facility] Comment:Desirable Triglyceri de: less than 150 mg/dLBorderline High Triglyceride 150-199 mg/dLHigh Triglyceride: 200-499 mg/dLVery High Triglyceride: greater than or equal to 5OO mg/dL Cholesterol 195 <200 mg/dL [facility] Comment:Desirable Cholestero l: less than 200 mg/dLBorderline High Cholesterol: 200-239 mg/dLHigh Cholesterol: greater than 239 mg/dL LDL Cholesterol Calculated 123(H) <100 mg/dL [facility] Comment:Desirable LDL: less than 100 mg/dLNear Optimal/Above Optimal LDL: 110- 129 mg/dLBorderline High LDL: 130-159 mg/dLHigh LDL: 160-189 mg/dLVery High LDL: greater than or equal to 190 mg/dL HDL Cholesterol 51 >40 mg/dL [facility] Comment:Desirable HDL: great er than 40 mg/dL Note: This HDL assay may give artificially low results in patients with liver disease. Blood Venous blood specimen / Unknown 07/20/2025 11:55 AM EDT 07/20/2025 2:00 PM EDT [facility] LAB BLOOD ORDERABLES Selina l Result [facility] [address] [place], [place] [phone] * (ABNORMAL) Basic Metabolic Panel (07/20/2025 11:55 AM EDT) Sodium 139 135 - 145 mmol/L [facility] Potassium 4.1 3.3 - 5.1 mmol/L [facility] Chloride 105 96 - 108 mmol/L [facility] Carbon Dioxide 27 22 - 29 mmol/L [facility] Anion Gap 11(L) 12 - 20 [facility] Urea Nitrogen (BUN) 15 9 - 16 mg/dL [facility] Creatinine, Serum 0.87 0.5 - 1.4 mg/dL [facility] Estimated Glomerular Filt Rate >60 [facility] Comment:Chronic Kidney Disea se: Estimated GFR < 60 mL/min/[id number] Kidney Disease: Estimated GFR < 15 mL/min/1.73m2 Glucose 83 60 - 115 mg/dL [facility] Calcium 9.3 8.4 - 10.2 mg/dL [facility] Blood Venous blood specimen / Unknown 07/20/2025 11:55 AM EDT 07/20/2025 2:00 PM EDT Yulia Anaya CNP LAB BLOOD ORDERABLES Selina l Result [facility] [address] [place] [phone] [phone] from Last 3 Months Insurance [employer] [address] Care Teams Global Sales Director Relationship Specialty Start Date End Date Yulia Anaya CNP [address] [place] [address] PCP - General Family Medicine 07/20/25
--- OUTSIDE RECORDS SUMMARY | 2025-09-03 22:50 | XMS_ITS | Encounter Summary ---
Author Organization [employer] Address [address] [place] [address] Care Team Providers Care Professor Of Psychiatry Name Role Phone Yulia Anaya RICCI Primary Care Provider [phone] Encounter Details Date Type Department Care Team (Late st Contact Info) Description 07/24/2025 Results Follow-Up [facility] [address] [place], [place] [phone] Yulia Anaya, RICCI [address] [place] [address] Basic Metabolic Panel, CBC auto differential, Lipid Panel, Standard, Additional followed-up results: 3 Social History Tobacco Use Types Packs/Day Years [...] documented as of this encounter Care Teams Professor Of Psychiatry Relationship Specialty Start Date End Date Yulia Anaya CNP [address] [place] [phone] PCP - General Family Medicine 07/20/25 documented as of this encounter
--- OUTSIDE RECORDS SUMMARY | 2025-09-03 22:50 | XMS_ITS | Encounter Summary ---
Author Organization [facility] Address [address] [place], [place] [phone] Phone Care Team Providers Care Land Title Examiner Name Role Phone Valeriy Tran MD Primary Care Provider Clark costello Reason for Visit * Reason Comments Med Refill Encounter Details Date Type Department Care Team ([facility] Contact Info) Description 02/07/2018 Refill [facility] [address] [place] [address] Ramos Lockwood MD [address] [place] [address] Allergic rhinitis, unspecified chronicity, unspecified seasonality, unspecified [...] Primary documented in this encounter Care Teams Land Title Examiner Relationship Specialty Start Date End Date Valeriy Tran MD PCP - General Pediatrics 10/17/19 11/03/23 documented as of this encounter
--- OUTSIDE RECORDS SUMMARY | 2025-09-03 22:50 | XMS_ITS | Encounter Summary ---
Author Organization [facility] Address [address] [place] [phone] Phone Care Team Providers Care Agricultural Engineering Technician Name Role Phone Valeriy Tran MD Primary Care Provider Clark costello Encounter Details Date Type Department Care Team (Late st Contact Info) Description 03/03/[address] [facility] [place] [address] [place] [address] Family Medicine, Physician [address] [place] [address] Social History Tobacco Use Types Packs/Day Years [...] on filedocumented in this encounter Care Teams Agricultural Engineering Technician Relationship Specialty Start Date End Date Valeriy Tran MD PCP - General Pediatrics 10/17/19 11/03/23 documented as of this encounter
--- OUTSIDE RECORDS SUMMARY | 2025-09-03 22:50 | XMS_ITS | Clinical Summary ---
Author Organization [facility] Address [address] [place] [id number] Phone Care Team Providers Care Hot Room Attendant Name Role Phone Unavailable Primary Care Provider [...] allergic rhinitis 02/03/2018 Overview (02/03/2018): Responds to [facility] Assessment & Plan (02/18/2023 12:07 PM EDT): Recommend daily use of allergy meds for best effectiveness, no refills needed today. Assessment & Plan (03/03/2022 11:23 AM EDT): Is mild now, takes claritin and flonase prn Assessment & Plan (02/09/2020 4:03 PM EDT): [facility] makes him sleepy, gags with flonase, so use nasal saline with flonase, use claritin instead Learning disability 01/20/2016 Overview (02/09/2020): dyslexia Assessment & Plan (09/08/2022 2:55 PM EST): I would work on completing your degree at [employer]; utilize all the resources there. Assessment & Plan (03/03/2022 11:24 AM EDT): Is doing well Assessment & Plan (01/23/2021 3:53 PM EDT): Did well at [employer] Assessment & Plan (02/09/2020 4:01 PM EDT): Doing well at [employer], though doesn't like it. Resolved Problems Problem [...] Wanda Anxiety disorder Sister 1 [facility] Relation Name Status Comments Father Eusebio Alive Father: Hyperli pidemia Maternal Grandfather Maternal Grandmother Mother Wanda Alive Mother: graves disease Other Family history of Migraines, Family history of Obesity, No family history of *Sudden /SD under 55, No family history of *CVA/Stroke, Family history of Asthma, Family history of Hyperlipidemia, Family history of *Heart Disease, Family history of Diabetes mellitus, Family history of *Dental caries Sister 1 [facility] Alive Sister: Alive a nd well, Alive and well Sister 2 [place] Alive Sister: Alive a nd well, Alive [...] 07/19/2020, 07/01/2019, Additional history exists COVID-19 Vaccine (2024-2 6 season) 2025 10/09/2021, 10/09/2021, 09/18/2021, Additional [...]
== END 2025-09-03 19:56 | disposition home or self-care (01) ==
LOC: HO.MRI 19:55
DX: M25.572 Pain in left ankle and joints of left foot (principal); G89.29 Other chronic pain
CPT/HCPCS: 73721

== ENCOUNTER → 2025-09-03 19:59 | Outpatient (BNV) | payer OTHER, SELFPAY | PROVIDERS: Visit Provider Radiology Diagnostic Ultrasound | DX: S93.492A Sprain of other ligament of left ankle, initial encounter (principal); M19.072 Primary osteoarthritis, left ankle and foot; M25.472 Effusion, left ankle; R60.0 Localized edema | CPT/HCPCS: 73721 ==